=== PATIENT | female | born 1950 ===

== ENCOUNTER 2021-06-19 16:32 | Inpatient (IN) ==
[2021-06-19] MEDS ORDERED: Diltiazem IV BAG D5W Premix 125 MG/125 ML BAG IV SCH (17:00)
[2021-06-19] MEDS ORDERED: Iodixanol (CONTRAST) 320 MG/ML 100 ML SDV IV ONE (18:47)
[2021-06-19] MEDS ORDERED: Diltiazem IV push/loading dose 5 MG/ML 5 ML vial (25 mg) IV SLOW PU ONE (19:07)
[2021-06-19 19:50] LABS: ALT 179 U/L (7-52); AST 119 U/L (13-39); Albumin 3.5 g/dL (3.2-5.2); Alkaline Phosphatase 54 U/L (35-149); Anion Gap 10 mmol/L (2-11); Blood Urea Nitrogen 42 mg/dL (6-24); CO2 Carbon Dioxide 22 mmol/L (22-32); Calcium 8.4 mg/dL (8.6-10.3); Chloride 102 mmol/L (101-111); Cholesterol 111 mg/dL; Glucose 116 mg/dL (70-100); HDL Cholesterol 17.7 mg/dL; LDL Cholesterol 72 mg/dL; Magnesium 1.9 mg/dL (1.9-2.7); Potassium 4.5 mmol/L (3.5-5.0); Sodium 134 mmol/L (135-145); Triglycerides 108 mg/dL; eGFR CKD-EPI 43.6 (>60)
[2021-06-19 19:56] LABS: Troponin I 0.05 ng/mL (<0.03)
[2021-06-19 20:01] LABS: ABS Lymphocytes 1.5 10^3/ul (1.0-4.8); ABS Monocytes 0.9 10^3/ul (0-0.8); Eosinophil % 0.3 %; Hematocrit 32 % (35-47); Lymphocyte % 15.6 %; Mean Corpuscular HGB Conc 34 g/dL (31-36); Mean Corpuscular Hemoglobin 32 pg (27-31); Mean Corpuscular Volume 93 fL (80-97); Nucleated Red Blood Cells % 0.4; Platelet Count Platelets clumped. 10^3/uL (150-450); Red Blood Count 3.42 10^6 /uL (3.70-4.87); Red Cell Distribution Width 14 % (10-15); White Blood Count 9.5 10^3/uL (3.5-10.8)
[2021-06-19 20:07] LABS: INR 1.76 (0.86-1.15)
[2021-06-19 20:35] LABS: PCO2 Arterial 34 mmHg (35-45)
[2021-06-19 22:11] LABS: Albumin/Globulin Ratio 0.9 (1-3); Globulin 3.9 g/dL (2-4); Total Protein 7.4 g/dL (6.4-8.9)
[2021-06-19 22:47] LABS: Urine Appearance Cloudy; Urine Bilirubin Negative (Negative); Urine Blood 2+ (Negative); Urine Color Yellow; Urine Glucose Negative (Negative); Urine Ketones Negative (Negative); Urine Nitrite Negative (Negative); Urine Protein Negative (Negative); Urine Specific Gravity 1.008 (1.002-1.030); Urine Urobilinogen Negative (Negative)
[2021-06-19 22:56] LABS: Urine Bacteria 1+ (Absent); Urine Red Blood Cell 1+(3-5/hpf) (Absent); Urine Squamous Epithelial Cell Present (Absent); Urine White Blood Cell Trace(0-5/hpf) (Absent)
[2021-06-19 23:19] LABS: TSH Ultra Thyroid Stim Horm 1.08 mcIU/mL (0.34-5.60)
[2021-06-20] MEDS ORDERED: Furosemide 40 mg/4 ml IV VIAL IV ONE (00:33)
[2021-06-20] MEDS ORDERED: Metoprolol Tartrate 5 mg VIAL 5 ml VIAL (1 mg/ml) IV ONE (01:32)
[2021-06-20] MEDS ORDERED: Metoprolol Tartrate 5 mg VIAL 5 ml VIAL (1 mg/ml) ONE (01:34)
[2021-06-20 03:13] LABS: Free T4 1.45 ng/dL (0.61-1.12)
[2021-06-20 10:44] LABS: Hematocrit 33 % (35-47); Hemoglobin 11.3 g/dL (12.0-16.0); Mean Corpuscular HGB Conc 34 g/dL (31-36); Mean Corpuscular Hemoglobin 32 pg (27-31); Mean Corpuscular Volume 95 fL (80-97); Red Blood Count 3.51 10^6 /uL (3.70-4.87); Red Cell Distribution Width 14 % (10-15); White Blood Count 6.4 10^3/uL (3.5-10.8)
[2021-06-20 10:57] LABS: ALT 158 U/L (7-52); AST 86 U/L (13-39); Albumin 3.5 g/dL (3.2-5.2); Alkaline Phosphatase 53 U/L (35-149); Anion Gap 8 mmol/L (2-11); Blood Urea Nitrogen 40 mg/dL (6-24); CO2 Carbon Dioxide 26 mmol/L (22-32); Calcium 8.4 mg/dL (8.6-10.3); Chloride 103 mmol/L (101-111); Globulin 3.6 g/dL (2-4); Glucose 109 mg/dL (70-100); Potassium 4.1 mmol/L (3.5-5.0); Sodium 137 mmol/L (135-145); Total Protein 7.1 g/dL (6.4-8.9); eGFR CKD-EPI 50.4 (>60)
[2021-06-20 11:14] LABS: Troponin I 0.05 ng/mL (<0.03)
[2021-06-20 11:25] LABS: Platelet Count Platelets clumped. 10^3/uL (150-450)
[2021-06-20 11:29] LABS: Macrocytosis 1+; Polychromasia 1+
[2021-06-20 11:30] LABS: ABS Eosinophils 0.2 10^3/ul (0-0.6); ABS Monocytes 0.7 10^3/ul (0-0.8); ABS Neutrophils 4.5 10^3/ul (1.5-7.7); Eosinophil % 2.5 %; Lymphocyte % 15.4 %; Nucleated Red Blood Cells % 0.3
[2021-06-20] MEDS ORDERED: Iodixanol (CONTRAST) 320 MG/ML 100 ML SDV IV ONE (11:55)
[2021-06-20] MEDS: Enoxaparin 100 MG/ML SYR SUBCUT SCH (17:16)
[2021-06-20] MEDS ORDERED: Warfarin per PHARMACY **NOTE FOLLOW UP SCH (19:00)
[2021-06-21] MEDS: Enoxaparin 100 MG/ML SYR SUBCUT SCH ×2 (03:49→15:47)
[2021-06-21 06:40] LABS: ABS Eosinophils 0.3 10^3/ul (0-0.6); ABS Lymphocytes 0.7 10^3/ul (1.0-4.8); ABS Monocytes 0.5 10^3/ul (0-0.8); ABS Neutrophils 3.2 10^3/ul (1.5-7.7); Hematocrit 32 % (35-47); Hemoglobin 10.9 g/dL (12.0-16.0); Lymphocyte % 15.3 %; Mean Corpuscular HGB Conc 34 g/dL (31-36); Mean Corpuscular Hemoglobin 32 pg (27-31); Mean Corpuscular Volume 94 fL (80-97); Nucleated Red Blood Cells % 0.1; Red Blood Count 3.36 10^6 /uL (3.70-4.87); Red Cell Distribution Width 14 % (10-15); White Blood Count 4.7 10^3/uL (3.5-10.8)
[2021-06-21 06:43] LABS: INR 1.62 (0.86-1.15)
[2021-06-21 06:56] LABS: Mean Platelet Volume 9.4 fL (7.4-10.4); Platelet Count 71 10^3/uL (150-450)
[2021-06-21 06:59] LABS: Calcium 8.2 mg/dL (8.6-10.3); Magnesium 2.2 mg/dL (1.9-2.7); Potassium 3.9 mmol/L (3.5-5.0); eGFR CKD-EPI 71.7 (>60)
[2021-06-21] MEDS ORDERED: Furosemide 20 mg/2 ml IV VIAL IV ONE (08:28)
[2021-06-21] MEDS ORDERED: Warfarin DAILY REMINDER **NOTE FOLLOW UP SCH (17:00)
[2021-06-22] MEDS: Enoxaparin 100 MG/ML SYR SUBCUT SCH (04:22)
[2021-06-22 07:39] LABS: INR 3.8 (0.86-1.15)
[2021-06-22 11:47] VITALS: BP 105/68
[2021-06-22] MEDS ORDERED: Warfarin - No Order Today **NOTE FOLLOW UP ONE (17:00)
== END 2021-06-22 12:20 | DRG 308 ==
LOC: ED 16:32 → SUATTDRO 19:14 → EDHOLD 19:14 → ICU 06-20 07:38 → MEDTELE 06-20 22:28
PROVIDERS: ADMIT Internal Medicine; ATTEND Student in an Organized Health Care Education/Training Program